=== PATIENT | male | born 2000 | race Caucasian/White ===

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

== ENCOUNTER 2021-10-04 16:23 | Emergency (ER) | payer BC ==
[~2021-10-04] VITALS: Ht 185 cm; Wt 117.0 kg
--- NOTE | 2021-10-04 17:55 | ED General ---
General Chief Complaint: General Problems/Pain Stated Complaint: CHEST PAIN/HEADACHE/FEVER/COUGH/ DIZZY/ELEVATED BP Nursing Triage Note: PATIENT COMPLAINT CHEST PAIN, COUGH, DIZZINESS, BODY ACHES, HEADACHE SINCE THIS MORNING, PATIENT VERBALIZED HE QUIT VAPING 2 DAYS AGO. Source of Information: Patient Exam Limitations: No Limitations History of Present Illness Date Seen by Provider: Oct 04, 2021 Time Seen by Provider: 17:54 Initial Comments Patient is a 20-year-old male who presents to the emergency department with a chief complaint of fevers, chills, semiproductive cough body aches chest pain, headache. Symptom onset this morning when he woke up. He is taken some Tylenol PM for his symptoms. Last dose was about 1 PM. He is a daily drinker, hard liquor. He tells me he has past medical history of "severe hypertension" and elevated liver functions. He follows with a doctor from [facility]. Patient states he initially attributed his symptoms to stopping vaping a couple of days ago. Not flu vaccinated, not COVID vaccinated. No nausea currently. Rates his headache as "severe". Nothing makes it any better, nothing makes it any worse. He is chilling currently. I had a discussion with the patient regarding ongoing alcohol use. He states that he has a girlfriend for family support. 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 Other than that he does not have a plan for sobriety. All other review of systems reviewed and negative except as stated. Timing/Duration: 12 Hours Severity: Severe Associated Systoms: Chest Pain, Cough, Diaphoresis, Fever/Chills, Headaches, Malaise Allergies and Home Medications Allergies Coded Allergies: amoxicillin (Verified Allergy, Unknown, 08/24/20) Patient Home Medication List Home Medication List Reviewed: Yes Review of Systems Review of Systems Constitutional: see HPI, chills, fever, malaise EENTM: no symptoms reported Respiratory: cough Cardiovascular: chest pain Gastrointestinal: abdominal pain, heartburn Genitourinary: no symptoms reported Musculoskeletal: muscle cramps Skin: no symptoms reported Psychiatric/Neurological: Headache All Other Systems Reviewed Negative Unless Noted: Yes Past Inhuqxj-Ukbhwf-Brmwpi Hx Patient Social History Tobacco Use?: No Use of E-Cig and/or Vaping dev: Yes E-Cig or Vaping type used: Nicotine Additional E-Cig or Vaping: PATIENT VERBALIZED STOPPED VAPING 2 DAYS AGO Substance use?: No Alcohol Use?: Yes Alcohol type: Beer Alcohol Frequency: Couple times a week Pt feels they are or have been: No Immunizations Up To Date Influenza Vaccine Up-to-Date: No; Not Current First/Initial COVID19 Vaccinat: NO Second COVID19 Vaccination Stuart: NO Third COVID19 Vaccination Date: NO COVID19 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 oz. kg; 34.00 BMI Method: General Appearance: No Apparent Distress, WD/WN Eyes: Bilateral Eye Normal Inspection, Bilateral Eye PERRL, Bilateral Eye EOMI HEENT: PERRL/EOMI Neck: Full Range of Motion, Normal Inspection, Non Tender, Supple, Other (no meningismus) Respiratory: Chest Non Tender, Lungs Clear, Normal Breath Sounds, No Accessory Muscle Use, No Respiratory Distress Cardiovascular: Regular Rate, Rhythm (122), Normal Peripheral Pulses Gastrointestinal: Soft, Tenderness (lower abdominal discomfort to palpation) Extremity: Normal Inspection Neurologic/Psychiatric: Alert, Oriented x3, No Motor/Sensory Deficits, Normal Mood/Affect, collection supervisor II-XII Norm as Tested Skin: Normal Color, Warm/Dry Progress/Results/Core Measures Suspected Sepsis SIRS Temperature: Pulse: 128 Respiratory Rate: 22 Blood Pressure 146 /86 Mean: 106 Laboratory Tests 10/04/21 17:08: Creatinine 1.25, Total Bilirubin 0.5 Results/Orders Lab Results Laboratory Tests Test 10/04/21 17:07 10/04/21 17:08 Range/Units Influenza Type A (RT-PCR) Detected H Not Detecte Influenza Type B (RT-PCR) Not Detected Not Detecte SARS-CoV-2 RNA (RT-PCR) Not Detected Not Detecte Sodium Level 138 135-145 MMOL/L Potassium Level 3.8 3.6-5.0 MMOL/L Chloride Level 103 98-107 MMOL/L Carbon Dioxide Level 20 L 21-32 MMOL/L Anion Gap 15 H 5-14 MMOL/L Blood Urea Nitrogen 14 7-18 MG/DL Creatinine 1.25 0.60-1.30 MG/DL Estimat Glomerular Filtration Rate 85 BUN/Creatinine Ratio 11 Glucose Level 98 70-105 MG/DL Calcium Level 10.0 8.5-10.1 MG/DL Corrected Calcium 8.5-10.1 MG/DL Total Bilirubin 0.5 0.1-1.0 MG/DL Aspartate Amino Transf (AST/SGOT) 43 H 5-34 U/L Alanine Aminotransferase (ALT/SGPT) 68 H 0-55 U/L Alkaline Phosphatase 71 40-136 U/L Total Protein 7.6 6.4-8.2 GM/DL Albumin 5.0 H 3.2-4.5 GM/DL My Orders Orders - LAWRENCE SANDHU MD Comprehensive Metabolic Panel (10/04/21 18:04) Ed Iv/Invasive Line Start (10/04/21 18:04) Ketorolac Injection (Toradol Injection) (10/04/21 18:15) Orphenadrine Inj (Ed Only) (Norflex Inje (10/04/21 18:15) Ns Iv 1000 Ml (Sodium Chloride 0.9%) (10/04/21 18:15) Metoclopramide Injection (Reglan Injecti (10/04/21 19:15) Diphenhydramine Injection (Benadryl Inje (10/04/21 19:15) Oseltamivir 75 Mg Capsule (Tamiflu 75 (10/04/21 19:15) Medications Given in ED Current Medications Medications Dose Ordered Sig/Roman Route Start Time Stop Time Status Last Admin Dose Admin Diphenhydramine HCl 25 mg ONCE ONCE IV 10/04/21 19:15 10/04/21 19:16 DC 10/04/21 19:29 25 MG Ketorolac Tromethamine 30 mg ONCE ONCE IVP 10/04/21 18:15 10/04/21 18:16 DC 10/04/21 18:15 30 MG Metoclopramide HCl 10 mg ONCE ONCE IVP 10/04/21 19:15 10/04/21 19:16 DC 10/04/21 19:29 10 MG Orphenadrine Citrate 60 mg ONCE ONCE IV 10/04/21 18:15 10/04/21 18:16 DC 10/04/21 18:14 60 MG Oseltamivir Phosphate 75 mg ONCE ONCE PO 10/04/21 19:15 10/04/21 19:16 DC 10/04/21 19:29 75 MG Vital Signs/I&O 10/04/21 10/04/21 10/04/21 17:21 17:59 18:15 Temp 39.1 39.4 38.0 Pulse 128 Resp 22 B/P (MAP) 146/86 (106) Pulse Ox 96 O2 Delivery Room Air Capillary Refill : Less Than 3 Seconds Blood Pressure Mean: 106 Progress Note #1: Time: 17:55 Progress Note RN notified me that pt is FLu A positive Progress Note #2: Time: 19:12 Progress Note Patient reevaluated, states he feels a little bit better, head is about a "6 or 7"; will add a little bit more medication. We will start him on some Tamiflu. Advised him to drink plenty of fluids. Ibuprofen/Tylenol as needed for fever and body aches. Return precautions given. Departure Impression Primary Impression: Influenza A Disposition: 01 HOME, SELF-CARE Condition: Improved Departure-Patient Inst. Decision time for Depature: 19:13 Referrals: NO,LOCAL PHYSICIAN (PCP/Family) Primary Care Physician Patient Instructions: Flu, Adult (DC) Add. Discharge Instructions: Drink lots of fluids to stay well-hydrated, water/Gatorade. [id number] ibuprofen 3 tablets which is 600 mg every 6 hours with food as needed for any fever over 100.4 and body aches. Please take the Tamiflu twice a day for 5 days. Return to the emergency department for any worsening symptoms, new emergent c oncerns Scripts Oseltamivir Phosphate (Tamiflu) 75 Mg Cap 75 MG PO BID, #9 CAP Prov: LAWRENCE SANDHU MD 10/04/21 LAWRENCE SANDHU MD Oct 04, 2021 17:55
[2021-10-04 18:12] LABS: CHLORIDE 103 MMOL/L (98-107); POTASSIUM 3.8 MMOL/L (3.6-5.0); SODIUM 138 MMOL/L (135-145)
[2021-10-04 18:15] LABS: GLUCOSE 98 MG/DL (70-105); TOTAL PROTEIN 7.6 GM/DL (6.4-8.2)
[2021-10-04] MEDS ORDERED: NS IV 1000 ML 1,000 ML IV SCH (18:15)
[2021-10-04] MEDS ORDERED: ORPHENADRINE 60 MG/2 ML (NORFLEX) AMP (ED ONLY) IV ONE (18:15)
[2021-10-04] MEDS ORDERED: KETOROLAC 30 MG/ML VIAL IVP ONE (18:15)
[2021-10-04 18:16] LABS: CARBON DIOXIDE 20 MMOL/L (21-32)
[2021-10-04 18:17] LABS: BILIRUBIN,TOTAL 0.5 MG/DL (0.1-1.0)
[2021-10-04 18:18] LABS: ALKALINE PHOSPHATASE 71 U/L (40-136); CREATININE SERUM 1.25 MG/DL (0.60-1.30); GFR ESTIMATED 85
[2021-10-04 18:19] LABS: BUN/CREATININE RATIO 11
[2021-10-04 18:21] LABS: ALANINE AMINOTRANSFERASE 68 U/L (0-55)
[2021-10-04] MEDS ORDERED: METOCLOPRAMIDE INJ 10 MG/2 ML (REGLAN) IVP ONE (19:15)
[2021-10-04] MEDS ORDERED: OSELTAMIVIR 75 MG (TAMIFLU) CAPSULE PO ONE (19:15)
[2021-10-04] MEDS ORDERED: diphenhydrAMINE 50 MG/ML INJ (BENADRYL) IV ONE (19:15)
[2021-10-04] MEDS ORDERED: OSLT75C PO (19:36)
[2021-10-04 20:12] VITALS: BP 146/86
== END 2021-10-04 20:12 | disposition home or self-care (01) ==
LOC: EDUNIT# 16:23 → ER 16:27
DX: J10.1 Influenza due to other identified influenza virus with other respiratory manifestations (principal); Z20.822 Contact with and (suspected) exposure to COVID-19
CPT/HCPCS: 36415; 80053; 87636

== ENCOUNTER 2022-12-12 18:22 | Emergency (ER) | payer BC, OTHER ==
[~2022-12-12] VITALS: Ht 185 cm; Wt 109.0 kg
[~2022-12-12 18:22] MED LIST: OSLT75C PO
[2022-12-12 18:29] VITALS: BP 128/62
[2022-12-12] MEDS ORDERED: KETOROLAC 30 MG/ML VIAL IVP ONE (19:15)
[2022-12-12] MEDS ORDERED: LACTATED RINGERS 1,000 ML IV SCH (19:15)
--- NOTE | 2022-12-12 19:18 | ED Fever ---
History of Present Illness General Chief Complaint: Fever-Adult/Adol Stated Complaint: FEVER Nursing Triage Note: PT AMB TO TRIAGE PT CO OF FEVER STARTED LAST NIGHT, PT HAS BODY ACHES AND SORETHROAT, PT WAS TESTED FOR COVID, FLU, AND STREP THROAT AT URGENT CARE AND NEGATIVE. PT STATES HAS BEEN TAKING NAPROXEN AND TYLENOL FOR FEVERS. FEVER UP TO 104+. DENIES URINARY SX OR TICK BITES. PT CO OF [place] 02/28 Source: patient Exam Limitations: no limitations History of Present Illness Date Seen by Provider: Dec 12, 2022 Time Seen by Provider: 19:16 Initial Comments To ER by private vehicle with reports of fever up to 104 last night. Had diffuse body aches headache sore throat. Was seen at urgent care today tested negative for COVID flu and strep. Denies cough or shortness of breath. Denies any urinary symptoms or abdominal pains. Denies any known tick bites. Does complain of a sore throat. Last dose of antipyretic was Tylenol at 4 PM. Tmax 104. 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 Associated Symptoms: No abdominal pain, No chest pain, No confusion, No cough, No diaphoresis; headache Allergies and Home Medications Allergies Coded Allergies: amoxicillin (Verified Allergy, Unknown, 08/24/20) Patient Home Medication List Home Medication List Reviewed: Yes Oseltamivir Phosphate (Tamiflu) 75 Mg Cap, 75 MG PO BID Prescribed by: LAWRENCE SANDHU on 10/04/211935 Review of Systems Review of Systems Constitutional: see HPI, chills, fever, malaise EENTM: see HPI, throat pain; No nose congestion Respiratory: see HPI Cardiovascular: no symptoms reported Genitourinary: no symptoms reported Musculoskeletal: no symptoms reported Skin: no symptoms reported Psychiatric/Neurological: No Symptoms Reported Hematologic/Lymphatic: No Symptoms Reported Immunological/Allergic: no symptoms reported Past Nyikgxn-Aqlupi-Jdauis Hx Patient Social History Tobacco Use?: No Substance use?: No Alcohol Use?: No Pt feels they are or have been: No Immunizations Up To Date First/Initial COVID19 Vaccinat: NO Second COVID19 Vaccination Stuart: NO Third COVID19 Vaccination Date: NO Seasonal Allergies Seasonal Allergies: No Past Medical History Surgery/Hospitalization HX: T AND A Surgeries: No Respiratory: No Cardiac: No Neurological: No Genitourinary: No Gastrointestinal: No Musculoskeletal: No Endocrine: No HEENT: No Cancer: No Psychosocial: No Integumentary: No Blood Disorders: No Physical Exam Vital Signs - First Documented 12/12/22 18:29 Temp 37.7 Pulse 125 Resp 18 B/P (MAP) 128/62 (84) Pulse Ox 96 Capillary Refill : Less Than 3 Seconds Height: '" Weight: lbs. oz. kg; 31.00 BMI Method: General Appearance: WD/WN, no apparent distress Eyes: Bilateral Eye Normal Inspection, Bilateral Eye PERRL, Bilateral Eye EOMI HEENT: PERRL/EOMI, TMs normal, other (Shallow 2 to 3 mm ulcers noted on the tonsillar pillars and soft palate. Diffuse pharyngeal erythema noted. Faint exudate.) Neck: non-tender, full range of motion Respiratory: no respiratory distress, no accessory muscle use Cardiovascular: regular rate, rhythm, no murmur Gastrointestinal: normal bowel sounds, non tender, soft Neurologic/Psychiatric: alert, normal mood/affect, oriented x 3 Skin: normal color, warm/dry Focused Exam Lactate Level 12/12/22 20:02: Lactic Acid Level 1.11 Lactic Acid Level Laboratory Tests Test 12/12/22 20:02 Lactic Acid Level 1.11 MMOL/L (0.50-2.00) Progress/Results/Core Measures Suspected Sepsis SIRS Temperature: Pulse: 125 Respiratory Rate: 18 Laboratory Tests 12/12/22 19:25: White Blood Count 18.3H Blood Pressure 128 /62 Mean: 84 12/12/22 20:02: Lactic Acid Level 1.11 Laboratory Tests 12/12/22 19:25: Creatinine 1.29, Platelet Count 235, Total Bilirubin 1.2H Results/Orders Lab Results Laboratory Tests Test 12/12/22 19:15 12/12/22 19:25 12/12/22 20:02 12/12/22 20:22 Range/Units Urine Color YELLOW Urine Clarity CLEAR Urine pH 6.5 5-9 Urine Specific [place] 1.010 L 1.016-1.022 Urine Protein 1+ H NEGATIVE Urine Glucose (UA) NEGATIVE NEGATIVE Urine Ketones NEGATIVE NEGATIVE Urine Nitrite NEGATIVE NEGATIVE Urine Bilirubin NEGATIVE NEGATIVE Urine Urobilinogen 1.0 < = 1.0 MG/DL Urine Leukocyte Esterase NEGATIVE NEGATIVE Urine RBC (Auto) TRACE-I H NEGATIVE Urine RBC 2-5 H /HPF Urine WBC RARE /HPF Urine Crystals PRESENT H /LPF Urine Amorphous Sediment FEW JAILENE URATES H /LPF Urine Bacteria NEGATIVE /HPF Urine Casts NONE /LPF Urine Mucus SMALL H /LPF Urine Culture Indicated NO White Blood Count 18.3 H 4.3-11.0 10^3/uL Red Blood Count 5.75 H 4.30-5.52 10^6/uL Hemoglobin 15.5 13.3-17.7 g/dL Hematocrit 46 40-54 % Mean Corpuscular Volume 79 L 80-99 fL Mean Corpuscular Hemoglobin 27 25-34 pg Mean Corpuscular Hemoglobin Concent 34 32-36 g/dL Red Cell Distribution Width 13.3 10.0-14.5 % Platelet Count 235 130-400 10^3/uL Mean Platelet Volume 9.6 9.0-12.2 fL Immature Granulocyte % (Auto) 0 % Neutrophils (%) (Auto) 85 H 42-75 % Lymphocytes (%) (Auto) 7 L 12-44 % Monocytes (%) (Auto) 8 0-12 % Eosinophils (%) (Auto) 0 0-10 % Basophils (%) (Auto) 0 0-10 % Neutrophils # (Auto) 15.5 H 1.8-7.8 10^3/uL Lymphocytes # (Auto) 1.2 1.0-4.0 10^3/uL Monocytes # (Auto) 1.5 H 0.0-1.0 10^3/uL Eosinophils # (Auto) 0.0 0.0-0.3 10^3/uL Basophils # (Auto) 0.1 0.0-0.1 10^3/uL Immature Granulocyte # (Auto) 0.1 0.0-0.1 10^3/uL Neutrophils % (Manual) 76 % Lymphocytes % (Manual) 8 % Monocytes % (Manual) 5 % Band Neutrophils 11 % Erythrocyte Sedimentation Rate 1 0-15 MM/HR Sodium Level 137 135-145 MMOL/L Potassium Level 3.2 L 3.6-5.0 MMOL/L Chloride Level 105 98-107 MMOL/L Carbon Dioxide Level 22 21-32 MMOL/L Anion Gap 10 5-14 MMOL/L Blood Urea Nitrogen 14 7-18 MG/DL Creatinine 1.29 0.60-1.30 MG/DL Estimat Glomerular Filtration Rate 81 BUN/Creatinine Ratio 11 Glucose Level 123 H 70-105 MG/DL Calcium Level 9.4 8.5-10.1 MG/DL Corrected Calcium 8.5-10.1 MG/DL Total Bilirubin 1.2 H 0.1-1.0 MG/DL Aspartate Amino Transf (AST/SGOT) 15 5-34 U/L Alanine Aminotransferase (ALT/SGPT) 24 0-55 U/L Alkaline Phosphatase 69 40-136 U/L C-Reactive Protein High Sensitivity 7.73 H 0.00-0.50 MG/DL Total Protein 7.2 6.4-8.2 GM/DL Albumin 4.6 H 3.2-4.5 GM/DL Monoscreen NEGATIVE NEGATIVE Lactic Acid Level 1.11 0.50-2.00 MMOL/L Group A Streptococcus Screen NEGATIVE NEGATIVE My Orders Orders - TORRIE ROBERT APRN Cbc With Automated Diff (12/12/22 19:08) Comprehensive Metabolic Panel (12/12/22 19:08) Urinalysis (12/12/22 19:08) Iv Heplock-Insert (Order) (12/12/22 19:08) Erythrocyte Sedimentation Rate (12/12/22 19:08) Hs C Reactive Protein (12/12/22 19:08) Ketorolac Injection (Toradol Injection) (12/12/22 19:15) Lactated Ringers (Lr 1000 Ml Iv Solution (12/12/22 19:15) Monotest (12/12/22 19:13) Manual Differential (12/12/22 19:25) Rapid Strep A Screen (12/12/22 19:50) Blood Culture (12/12/22 19:53) Lactic Acid Analyzer (12/12/22 19:53) Chest 1 View, Ap/Pa Only (12/12/22 19:56) Throat Culture Strep A Confirm (12/12/22 20:22) Medications Given in ED Current Medications Medications Dose Ordered Sig/Roman Route Start Time Stop Time Status Last Admin Dose Admin Ketorolac Tromethamine 15 mg ONCE ONCE IVP 12/12/22 19:15 12/12/22 19:17 DC 12/12/22 19:39 15 MG Vital Signs/I&O 12/12/22 18:29 Temp 37.7 Pulse 125 Resp 18 B/P (MAP) 128/62 (84) Pulse Ox 96 Capillary Refill : Less Than 3 Seconds Blood Pressure Mean: 84 Departure Communication (Admissions) 2100-mother at bedside now as well as girlfriend. We had a long conversation with Jose, mom and girlfriend. Girlfriend lives with him, mother lives a few hours away. Either girlfriend or mom will stay with him tonight and return for any concerns. Had a discussion about whether or not to proceed with a lumbar puncture. He has received meningococcal vaccine. The appearance of the throat is convincing that that is the source of his infection. CBC reviewed and shows a leukocytosis with 18,000 white count, ESR normal at 1, CRP elevated at 7. Allergic to penicillins. States he feels a lot better at this time and appears completely nontoxic and without rash. He is able to flex chin to chest though he does have some neck pain. After discussion with patient mom girlfriend jose as well as Dr. Sandhu came into the room to evaluate the patient, we are all in agreement to proceed with a more conservative approach at this time, Rocephin here then Ceftin antibiotic for streptococcal pharyngitis. Girlfriend or mother will stay with him tonight and return promptly to ER for any concerning or worsening symptoms. Impression Primary Impression: Pharyngitis Additional Impression: Febrile illness Disposition: 01 HOME, SELF-CARE Condition: Stable Departure-Patient Inst. Decision time for Depature: 21:04 Referrals: NO,LOCAL PHYSICIAN (PCP) Primary Care Physician Patient Instructions: Sore Throat, Adult (DC) Add. Discharge Instructions: Continue with Tylenol and ibuprofen for fever and pain control. Return to ER promptly for any confusion, worsening symptoms of any sort. Antibiotics as directed (sent to [facility]). All discharge instructions reviewed with patient and/or family. Voiced understanding. Scripts Cefuroxime Axetil (Cefuroxime) 250 Mg Tablet 250 MG PO BID, #10 TAB Prov: TORRIE ROBERT APRN 12/12/22 TORRIE ROBERT APRN Dec 12, 2022 19:18
[2022-12-12 19:25] LABS: BILIRUBIN,URINE NEGATIVE (NEGATIVE); CLARITY,URINE CLEAR; COLOR,URINE YELLOW; GLUCOSE, URINE (UA) NEGATIVE (NEGATIVE); KETONES,URINE NEGATIVE (NEGATIVE); LEUKOCYTE ESTERASE ,URINE NEGATIVE (NEGATIVE); NITRITE,URINE NEGATIVE (NEGATIVE); PH,URINE 6.5 (5-9); PROTEIN,URINE 1+ (NEGATIVE)
[2022-12-12 19:33] LABS: BASOPHILS # (AUTO) 0.1 10^3/uL (0.0-0.1); BASOPHILS % (AUTO) 0 % (0-10); EOSINOPHILS % (AUTO) 0 % (0-10); HEMATOCRIT 46 % (40-54); HEMOGLOBIN 15.5 g/dL (13.3-17.7); LYMPHOCYTES # (AUTO) 1.2 10^3/uL (1.0-4.0); LYMPHOCYTES % (AUTO) 7 % (12-44); MEAN CORPUSCULAR HEMOGLOBIN 27 pg (25-34); MEAN CORPUSCULAR HGB CONC 34 g/dL (32-36); MEAN CORPUSCULAR VOLUME 79 fL (80-99); MEAN PLATELET VOLUME 9.6 fL (9.0-12.2); MONOCYTES # (AUTO) 1.5 10^3/uL (0.0-1.0); MONOCYTES % (AUTO) 8 % (0-12); NEUTROPHILS # (AUTO) 15.5 10^3/uL (1.8-7.8); NEUTROPHILS % (AUTO) 85 % (42-75); PLATELET COUNT 235 10^3/uL (130-400); WHITE BLOOD COUNT 18.3 10^3/uL (4.3-11.0)
[2022-12-12 19:34] LABS: AMORPHOUS SEDIMENT,UR FEW AMOR URATES /LPF; BACTERIA,URINE NEGATIVE /HPF; WBC,URINE RARE /HPF
[2022-12-12 19:54] LABS: BAND NEUTROPHILS 11 %; LYMPHOCYTES % (MANUAL) 8 %; MONOCYTES % (MANUAL) 5 %; NEUTROPHILS % (MANUAL) 76 %
[2022-12-12 19:55] LABS: ERYTHROCYTE SEDIMENTATION RATE 1 MM/HR (0-15)
[2022-12-12 20:00] LABS: ALANINE AMINOTRANSFERASE 24 U/L (0-55); ALBUMIN 4.6 GM/DL (3.2-4.5); ALKALINE PHOSPHATASE 69 U/L (40-136); BILIRUBIN,TOTAL 1.2 MG/DL (0.1-1.0); BUN/CREATININE RATIO 11; CALCIUM 9.4 MG/DL (8.5-10.1); CARBON DIOXIDE 22 MMOL/L (21-32); CHLORIDE 105 MMOL/L (98-107); CREATININE SERUM 1.29 MG/DL (0.60-1.30); GFR ESTIMATED 81; GLUCOSE 123 MG/DL (70-105); POTASSIUM 3.2 MMOL/L (3.6-5.0); SODIUM 137 MMOL/L (135-145); TOTAL PROTEIN 7.2 GM/DL (6.4-8.2)
--- NOTE | 2022-12-12 20:47 | Diagnostic Imaging Report ---
INDICATION: Fever and leukocytosis. COMPARISON: No prior examinations are available for comparison. FINDINGS: The heart size, mediastinal configuration and pulmonary vascularity are within normal limits. There is no pleural effusion, pneumothorax or pneumonia. The osseous structures are unremarkable. IMPRESSION: No acute cardiopulmonary abnormality. Dictated by: Dictated on workstation # [id number]
[2022-12-12] MEDS ORDERED: CEFU250T80 PO (21:05)
[2022-12-12] MEDS ORDERED: cefTRIAXone IV/IM 1,000 MG in NS (IVPB) 50 ML IV ONE (21:15)
== END 2022-12-12 21:18 | disposition home or self-care (01) ==
LOC: EDUNIT# 18:22 → ER 18:24
DX: J02.9 Acute pharyngitis, unspecified (principal); R79.82 Elevated C-reactive protein (CRP); Z88.1 Allergy status to other antibiotic agents; Z28.310 Unvaccinated for COVID-19
CPT/HCPCS: 36415; 71045; 80053; 81000; 83605; 85007; 85027; 85652; 86141; 86308; 87040; 87430